=== PATIENT | male | born 1955 | race Caucasian/White ===

== ENCOUNTER 2024-01-29 13:25 | Outpatient (REF) | payer MEDICARE, SELFPAY ==
[2024-01-29 13:46] LABS: MANUAL DIFF FLAG NO
[2024-01-29 14:10] LABS: Basophils Percent Auto 0.6 % (0-2); Eosinophils Absolute Auto 0.1 X10*3/uL (0.0-0.4); Eosinophils Percent Auto 2.2 % (0-4); Hematocrit 47.1 % (42.0-52.0); Hemoglobin 16.4 g/dl (14.0-18.0); Imm Gran Abs Auto 0.02 X10*3/uL (0.00-0.03); Imm Gran Pct Auto 0.3 % (0.0-0.4); Lymphocytes Absolute Auto 1.8 X10*3/uL (1.2-4.9); Lymphocytes Percent Auto 28.6 % (20-40); Mean Corpuscular HGB Conc 34.8 g/dl (31.0-36.0); Mean Corpuscular Hemoglobin 34.4 pg (27.0-33.0); Mean Corpuscular Volume 98.7 fL (80.0-98.0); Mean Platelet Volume 11.6 fL (9.4-12.4); Monocytes Absolute Auto 0.7 X10*3/uL (0.1-1.2); Neutrophils Absolute Auto 3.6 x10*3/uL (2.0-8.3); Neutrophils Percent Auto 57.3 % (45-73); Platelet Count 176 X10*3/uL (160-400); Red Blood Count 4.77 X10*6/uL (4.60-5.80); Red Cell Distribution Width 12.1 % (11.0-16.0); White Blood Count 6.3 X10*3/uL (4.8-10.8)
[2024-01-29 14:25] LABS: Appearance Urine Clear; Color Urine Yellow; Glucose Urine UA Negative (Negative); Leukocyte Esterase Urine Trace (Negative); Nitrite Urine Negative (Negative); UMIC TRIGGER UA YES; Urine Blood Negative (Negative); Urine Ketones Negative (Negative); Urine Protein Negative (Neg-Trace)
[2024-01-29 14:29] LABS: Alanine Aminotransferase 41 U/L (0-40); Albumin Level 4.3 g/dL (3.5-5.0); Alkaline Phosphatase 69 U/L (39-117); Anion Gap 12 (12-20); Aspartate Amino Transferase 33 U/L (5-37); Bilirubin Total 0.9 mg/dL (0.0-1.0); Blood Urea Nitrogen 8 mg/dL (9-16); Calcium 9.6 mg/dL (8.4-10.2); Carbon Dioxide 30 mmol/L (22-29); Chloride 101 mmol/L (96-108); Cholesterol 191 mg/dL (<200); Estimated Glomerular Filt Rate > 60; Glucose Random 109 mg/dL (60-115); Potassium 5.2 mmol/L (3.3-5.1); Sodium 138 mmol/L (135-145); Total Protein 7.6 g/dL (6.5-8.0)
[2024-01-29 14:31] LABS: Bacteria Urine Trace (None Seen); Hyaline Casts Urine 0-2 /LPF (0-2); RBC Urine 0-2 /HPF (0-2); Squamous Epithelial Cell Urine 0-2 /HPF (0-2); WBC Urine 0-5 /HPF (0-5)
[2024-01-29 14:45] LABS: Prostate Specific Antigen Scr 1.82 ng/mL (<0.05-4.0)
== END 2024-01-29 13:26 | disposition home or self-care (01) ==
LOC: HO.LAB 13:25
PROVIDERS: PCP Internal Medicine; Visit Provider Internal Medicine
DX: R63.5 Abnormal weight gain (principal); Z12.5 Encounter for screening for malignant neoplasm of prostate
CPT/HCPCS: 36415; 80053; 81001; 82465; 84153; 85025

== ENCOUNTER 2024-03-03 08:15 | Outpatient (AMB) | payer MEDICARE, SELFPAY ==
--- NOTE | 2024-03-03 08:36 | MHC.OFFVIS ---
Vital Signs 03/03/24 08:40 Height 5 ft 8 in Weight 156 lb BMI 23.7 Handedness Right Intake Visit Reasons: N/P Dupuytrens's 4th Finger right Intake Note: Shon 68 yr old right hand dominant male presents today for a new problem visit for his right hand Dupuytrens contracture. States his 4th Finger is karel inward towards his palm and is very discomforting. Patient reports having this for many years. No previous treatment. He states that his 4th finger contracts all the time and he hasn't tried anything to relieve his pain. Allergies No Known Allergies Allergy (Verified 03/03/24 08:39) HPI HPI N/P Dupuytrens's 4th Finger right : Details: Shon is a 68 year old right hand dominant man who presents with complaints of a right ring finger contracture. He complains of his ring finger karel inwards for some time. He says this has been present for several years, is causing him pain, and is affecting his ADLs. He says he plays Basketball but is unable to dribble the ball with his right hand due to this. He denies any prior treatment. He denies any numbness or tingling. He has a fungal nail infection to multiple fingernails. He says he spoke with his PCP concerning this but denies any treatment being done. 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 [facility] Social History (Updated 03/03/24 @ 08:40 by Julianna Saldivar) Alcohol intake: never Patient Tobacco Use Status: Never used Tobacco Current occupational status: retired Current occupation: right hand dominant Review of Systems Const All systems reviewed & are unremarkable except as noted in HPI and below Physical Exam Vital Signs: BMI result Body Mass Index 23.7 Const General: cooperative, healthy appearing and no acute distress Orientation/consciousness: patient oriented x3 HEENT Head: Yes normocephalic and Yes atraumatic Eyes EOM: EOMs intact bilaterally Resp Effort & Inspection: normal respiratory effort and able to speak in complete sentences Cardio Jugular venous distension: no JVD Skin General skin exam: turgor normal Rashes: no rashes Neuro General: patient oriented x3 Extrem Other: Evaluation of Right Upper Extremity: The patient is alert, oriented, and in no acute distress Neuro: Median, Ulnar, Radial nerves motor and sensory intact and sensation is normal to the tips of all digits Vascular: Cap refill brisk ROM: He can bring his fingers closed to a fist He can extend his thumb, index, middle, and small fingers He cannot place his hand fully flat on the table His ring finger has a Dupuytrens contracture MCP 50/PIP 0 There is a large central Dupuytrens cord extending from the mid-palm to the radial side of the ring finger PIP joint Skin: No lacerations or abrasions. General: No Ecchymosis. No Erythema or evidence of infection. He has onychomycosis to multiple fingernails bilaterally Psych Appearance: grossly normal Affect: normal affect Attitude: cooperative Assessment & Plan Assessment & Plan (1) Dupuytren's contracture of right hand: Code(s): M72.0 - Palmar fascial fibromatosis [Dupuytren] Category: Medical (2) Onychomycosis: Code(s): B35.1 - Tinea unguium Category: Medical Plan Assessment & Plan: 1. Right ring finger Dupuytrens contracture MCP 45-50/PIP 0 I educated him about this condition I discussed operative treatment options The patient would like to proceed with surgery I directed him to the [email or web address] website for more information The risks and benefits of operative treatment were discussed with the patient and the patient wishes to proceed with surgery. These risks include, but are not limited to risk of damage to blood vessels, nerves, tendons, infection, recurrence, incomplete relief of preoperative symptoms, persistent pain, possible need for further surgery and the risks associated with regional blocks and anesthesia. The plan is to take the patient to the operating room sometime in the next few weeks for the following procedures: 1. Right ring finger partial fasciectomy, under general All of the preoperative paperwork including the consent was reviewed today. All the patient's questions were answered. The patient understands that they will be contacted by our visitor information assistant soon to schedule this procedure He denies Diabetes, blood thinners, asthma, heart, lung, kidney issues 2. Onychomycosis Affecting multiple nails I educated him about this condition I recommend he speak with his PCP concerning non-operative treatment options Scribed for Lo Garcia MD by Kyle Ibrahim electromedical service engineer, on 03/03/24 at 8:50 AM, EST. Coding Level of Care Code New Pt Level 4 (28394) Diagnoses Dupuytren's contracture of right hand M72.0 Onychomycosis B35.1
[2024-03-03 08:40] VITALS: BMI 23.7
== END 2024-03-03 09:09 | disposition home or self-care (01) ==
PROVIDERS: PCP Internal Medicine; Visit Provider Orthopaedic Surgery
DX: M72.0 Palmar fascial fibromatosis [Dupuytren] (principal); B35.1 Tinea unguium
CPT/HCPCS: 99204

== ENCOUNTER → 2024-03-03 08:15 | Outpatient (BNVA) | payer MEDICARE, SELFPAY | PROVIDERS: PCP Internal Medicine; Visit Provider Orthopaedic Surgery | DX: M72.0 Palmar fascial fibromatosis [Dupuytren] (principal); B35.1 Tinea unguium | CPT/HCPCS: 99202 ==

== ENCOUNTER 2024-04-08 06:01 | Day surgery (SDC) | payer MEDICARE, SELFPAY ==
[2024-03-30 09:56] VITALS: BMI 23.7
--- NOTE | 2024-04-06 15:02 | HO.ANESPROP2 ---
Documented by User: Luciana Maxwell NP 04/06/24 15:04 HPI - Anesthesia Eval Consult details Narrative: 68yo M for Right Ring finger Dupuytrens Contracture Release partial Fasciotomy PMFSH Active Problems Active Problems: All Active Problems (Updated 03/30/24 @ 09:56 by Alyssa Roberts RN) Onychomycosis (Acute) Dupuytren's contracture of right hand (Acute) Past Medical History Medical History No pertinent past medical history Surgical History Surgical History History of open reduction and internal fixation (ORIF) procedure H/O colonoscopy Social History Social History Are you a primary adult care provider to a significant other at home: No Do you presently have visiting nurse or other home services: No Alcohol intake: never Patient Tobacco Use Status: Never used Tobacco Use of substances other than those prescribed or required for medical reasons: No Have you been hit, kicked, punched, or otherwise hurt by someone within the past year? If so, by whom?: No Are you DNR?: No Advance Directives: No Advance Directives Information Provided: Yes Advance Directives on File: No Recently lost weight without trying: No Eating poorly because of decreased appetite: No Nutrition Risks: No Nutritional Risk Poor oral hygiene: No (has post upper front tooth for upcoming implant) Current occupational status: retired Current occupation: right hand dominant Meds Allergies Allergy/AdvReac Type Severity Reaction Status Date / Time No Known Allergies Allergy Verified 04/08/24 06:10 Exam Height,Weight and Vital Signs: Height 5 ft 8 in Weight 70.76 kg Pertinent Lab Results Pertinent Lab Results: Laboratory Tests 01/29/24 13:45 WBC 6.3 Hgb 16.4 Hct 47.1 Plt Count 176 Sodium 138 Potassium 5.2 H Chloride 101 Carbon Dioxide 30 H BUN 8 L Creatinine 0.88 Assessment and Plan Assessment Anesthesia Assessment: Chart Reviewed Documented by User: Sheridan Cortes MD 04/08/24 08:22 PMFSH Past Medical History Medical History No pertinent past medical history Family History Family history of problems with anesthesia: No Surgical History Surgical History History of open reduction and internal fixation (ORIF) procedure H/O colonoscopy History of Problems with Anesthesia: No Social History Social History Are you a primary adult care provider to a significant other at home: No Do you presently have visiting nurse or other home services: No Alcohol intake: never Patient Tobacco Use Status: Never used Tobacco Use of substances other than those prescribed or required for medical reasons: No Have you been hit, kicked, punched, or otherwise hurt by someone within the past year? If so, by whom?: No Are you DNR?: No Advance Directives: No Advance Directives Information Provided: Yes Advance Directives on File: No Recently lost weight without trying: No Eating poorly because of decreased appetite: No Nutrition Risks: No Nutritional Risk Poor oral hygiene: No (has post upper front tooth for upcoming implant) Current occupational status: retired Current occupation: right hand dominant Meds Allergies Allergy/AdvReac Type Severity Reaction Status Date / Time No Known Allergies Allergy Verified 04/08/24 06:10 Exam Airway Mallampati Class: III TM Dist: <=3cm Neck ROM: Poor (missing front upper tooth) Heart: rrr Lungs: cta Assessment and Plan Assessment Anesthesia Assessment: Anesthesia Plan Discussed Final Anesthetic Review Family History of Problems with Anesthesia: No History of Problems with Anesthesia: No NPO: Yes ASA Class: II Final Preanesthetic Review: No Changes in Pt Med Stat, Meds/Allgs Chart Reviewed, Consent Obtained/Reviewed and Anes Risks/Benef Reviewed Patient Risk: Intermediate Procedure Risk: Intermediate Anesthetic Plan Anesthetic Plan: GA and Regional Block Disposition: Standard PACU
[2024-04-08 06:13] VITALS: BP 133/83; PULSE 66; RESP 18; TEMP 36.1; O2SAT 96; BMI 25.2
[2024-04-08] MEDS: Lactated Ringers 1,000 ML 100 ML IVCONT (06:48)
--- NOTE | 2024-04-08 07:35 | MHC.SHP ---
Pre-Procedural Eval Section A - 24 Hr Update-Section A only Date of Service: 04/08/24 The patient is an INPATIENT: No Changes since office visit: No Cold of Flu in the past 2 weeks, No New Medical Problems, No Changes in Medication and No Patient answered all questions The patient has been examined within 24 hours of the surgical procedure. The History & Physical has been completed within 30 days and I have reviewed it.: Yes Section B - Complete if H&P > 30 days Chief Complaint: Palmar fascial fibromatosis [Dupuytren] Allergies: Allergies Allergy/AdvReac Type Severity Reaction Status Date / Time No Known Allergies Allergy Verified 04/08/24 06:10 Exam Exam Comment: Ring finger Dupuytren's contracture Plan Diagnosis/Plan: Unchanged I have reviewed the history and physical and performed a pertinent physical examination on my patient. No changes have occurred unless specified. Time Spent With Patient Time: Total time managing care of this patient today ____ minutes.
--- NOTE | 2024-04-08 07:36 | P.OP_ITS ---
Operative Note Operative Note Date of Service: 04/08/24 Narrative: Preop diagnosis: 1. Right ring finger Dupuytren's contracture Postop diagnosis: Same Procedure: 1. Right ring finger Partial Dupuytren's fasciectomy Surgeon: Lo Garcia MD Anesthesia: General anesthesia plus regional block Findings: Dupuytren's cord, contracture corrected to 0 degree MCP/0 degree PIP Implants: None Tourniquet time: 46 minutes EBL: 5.0 ml Specimen: Dupuytren's cord to histopathology Drains: None Complications: None Disposition: Brought to the recovery room in stable condition Plan: Follow-up in 10-14 days for wound check, suture removal and to check pathology OT appt on day of f/u to make a custom night spint and to begin OT Indications: The patient is 68 years old with right ring finger Dupuytren's contracture . The risks and benefits of operative treatment, including but not limited to risk of damage to blood vessels, nerves, tendons, infection, recurrence, persistent pain or numbness, incomplete resolution of preoperative symptoms, or need for further surgery were discussed with the patient and they wished to proceed with surgery. Procedure: Once consent was obtained patient was brought back to the operating suite and placed in the operating table in a supine position. A regional block was performed by the anesthesia team. Perioperative antibiotics and anesthesia was administered by the anesthesia team. A tourniquet was applied to the proximal aspect of the right upper extremity and the limb was prepped and draped in a standard surgical fashion. The limb was elevated exsanguinated with Esmarc h bandage and the tourniquet inflated to 250 mm of mercury for a total tourniquet time of 46 minutes. I made a Niraj type incision extending along the Dupuytren's cord from the mid palm to the PIP flexion crease of the right ring finger. The incision was made with a 15. Blade through the skin the subcutaneous tissues. I then carefully dissected down to the level of the Dupuytren's cord beginning at the proximal aspect of the incision. This was done using tenotomy and iris scissors. Care was taken to protect the nearby neurovascular structures. The Dupuytren's cord was cut at its proximal aspect using tenotomy scissors. It was then grasped with an Allis clamp. The Dupuytren's cord was then carefully dissected free in a proximal to distal direction using tenotomy scissors and a gain taking care to protect the nearby neurovascular structures. The cord extended distally to the volar skin just proximal to the PIP joint. The cord was then dissected free from the patient placed on the back table to be sent for histopathology. This then corrected his Dupuytren's contracture to 0 degree MCP/0 degree PIP At this point the tourniquet was deflated and hemostasis obtained with a brief period of local pressure The wound was copiously irrigated with normal saline. The skin edges were reapproximated with 4-0 and 5-0 Prolene suture. The wound was infiltrated with some 0.5% plain ropivacaine for postop pain control and a sterile dressing was applied. The patient appears to have tolerated the procedure well and with no complications. All digits were well vascularized conclusion of the case.
[2024-04-08 09:25] VITALS: BP 152/78; PULSE 68; RESP 17; TEMP 36.6; O2SAT 98
[2024-04-08 09:30] VITALS: BP 167/86; PULSE 62; RESP 16; O2SAT 96
[2024-04-08 09:35] VITALS: BP 160/86; PULSE 60; RESP 16; O2SAT 96
[2024-04-08 09:40] VITALS: BP 165/89; PULSE 57; RESP 16; O2SAT 96
[2024-04-08 09:55] VITALS: BP 137/77; PULSE 60; RESP 16; TEMP 36.6; O2SAT 96
== END 2024-04-08 10:49 | disposition home or self-care (01) ==
PROVIDERS: PCP Internal Medicine; Visit Provider Orthopaedic Surgery
PROC: (CPT 26045; principal; 2024-04-08 07:30)
DX: M72.0 Palmar fascial fibromatosis [Dupuytren] (principal)
CPT/HCPCS: 26123; 88304; J0131; J0330; J0665; J0690; J1100; J2250; J2405; J2704; J2795; J3010

== ENCOUNTER → 2024-04-08 06:01 | Outpatient (BNV) | payer MEDICARE, SELFPAY | PROVIDERS: PCP Internal Medicine; Visit Provider Orthopaedic Surgery | DX: M72.0 Palmar fascial fibromatosis [Dupuytren] (principal) | CPT/HCPCS: 26123 ==

== ENCOUNTER 2024-04-20 09:15 | Outpatient (AMB) | payer MEDICARE, SELFPAY ==
[2024-04-20 09:20] VITALS: BMI 22.8
--- NOTE | 2024-04-20 09:20 | MHC.OFFVIS ---
Vital Signs 04/20/24 09:20 Height 5 ft 8 in Weight 150 lb BMI 22.8 Handedness Right Intake Visit Reasons: PO-Rt RF Dupuytrens 04/08/24 Intake Note: Shon is a 68 year old male who presents today post operatively s/p Right RF Dupuytrens 04/08/24. Patient reports that his hand feels a bit better after surgery. He expresses not having pain at this time. Denies numbness and tingling. Allergies No Known Allergies Allergy (Verified 04/20/24 09:28) HPI HPI PO-Rt RF Dupuytrens 04/08/24: Details: Patient is a 68 old male who presents for his 1st postop appointment after right ring finger Dupuytren's partial fasciectomy. Patient reports that he is doing well, and then he currently has no pain at the surgical site. Denies any numbness or tingling in his right hand. Patient reports that he is able to fully extend all fingers, but reports mild stiffness when he tries to make a fist. Per Dr. Garcia, patient was not placed in a splint at time of surgery. Patient inquires as to whether he can mow his lawn, as well as go fishing. [facility] Medical History No pertinent past medical history Surgical History History of open reduction and internal fixation (ORIF) procedure H/O colonoscopy Social History Are you a primary healthcare facility administrator to a significant other at home: No Do you presently have visiting nurse or other home services: No Alcohol intake: never Patient Tobacco Use Status: Never used Tobacco Current occupational status: retired Current occupation: right hand dominant Review of Systems Const All systems reviewed & are unremarkable except as noted in HPI and below Physical Exam Vital Signs: BMI result Body Mass Index 22.8 Const Other: Patient is alert, oriented, cooperative, and in no acute distress HEENT Head: Yes normocephalic and Yes atraumatic Resp Effort & Inspection: normal respiratory effort and able to speak in complete sentences Cardio Jugular venous distension: no JVD Neuro General: gait normal Cognition (Neuro): normal cognition Extrem Other: Incision site over right ring finger and palm is healing well, with no edema, erythema, or discharge. No evidence of infection. Sutures intact. Patient reports no tenderness to palpation around the surgical site. Patient is able to fully extend all digits of the right hand. He could actively bring his fingers close towards a fist but still has some swelling and is unable to completely bring it close. We went over some range of motion exercises in clinic that he is going to work on. Sensation intact in both the radial and ulnar aspects of the right ring finger. Sensation intact to all other digits. Capillary refill brisk. Psych Appearance: grossly normal Mental Status: mental status grossly normal Assessment & Plan Assessment & Plan (1) Dupuytren's contracture of right hand: Code(s): M72.0 - Palmar fascial fibromatosis [Dupuytren] Category: Medical Plan 1. Dupuytrens of right ring finger, s/p partial fasciectomy DOS 04/08/24 Preop contracture: 45-50 MCP/ 0 PIP Post op contracture: 0/0 Patient doing well post-operatively Patient educated on post-operative course Patient will have sutures removed today with steri strip placement. 2 pound weight limit on R hand for 2 more weeks Referral to occupational therapy placed today, for gentle ROM working towards making a closed fist and placing hand flat on the table. Patient also advised to avoid mowing the lawn and fishing for at least another 2 weeks, due to risk of shearing the wound and potentially reopening the incision site. Patient will follow-up in 3-4 weeks for [id number] check, or sooner with any acute concerns. Orders: Orders OT Evaluation and Treatment 04/20/24 M72.0 - Palmar fascial fibromatosis [Dupuytren] Coding Level of Care Code Global (66389) Diagnoses Dupuytren's contracture of right hand M72.0
== END 2024-04-20 10:09 | disposition home or self-care (01) ==
PROVIDERS: PCP Internal Medicine
DX: M72.0 Palmar fascial fibromatosis [Dupuytren] (principal)
CPT/HCPCS: 99024

== ENCOUNTER → 2024-04-20 09:15 | Outpatient (BNVA) | payer MEDICARE, SELFPAY | PROVIDERS: PCP Internal Medicine | DX: M72.0 Palmar fascial fibromatosis [Dupuytren] (principal) | CPT/HCPCS: 99212 ==

== ENCOUNTER 2024-05-12 08:51 | Outpatient (AMB) | payer MEDICARE, SELFPAY ==
--- NOTE | 2024-05-12 08:55 | A.OFFVIS_ITS ---
Vital Signs 05/12/24 08:57 Height 5 ft 8 in Weight 156 lb BMI 23.7 Handedness Right Intake Visit Reasons: PO- 3 wk f/u Rt RF Dupuytrens 04/08/24 Intake Note: Shon is a 68 year old right hand dominant male who presents today post operatively S/P Right ring finger Partial Dupuytren's fasciectomy 04/08/14 w/ AR. Patient reports he still has some discomfort when making a closed clenched fist but otherwise no pain. He missed his first OT appointment but has one scheduled for tomorrow, 05/12/24, in the afternoon. He would like to discuss when he can start bike riding. Allergies No Known Allergies Allergy (Verified 05/12/24 09:00) HPI HPI PO- 3 wk f/u Rt RF Dupuytrens 04/08/24: Details: Shon is a 68 year old right hand dominant man who returns S/P right ring finger partial fasciectomy, DOS: 04/08/24. He is doing well and is happy with the results of his surgery. He has been working on ROM exercises at home. He says he missed his first OT appointment but has one scheduled for tomorrow. He has some discomfort by his incision when making a closed fist but he says this is tolerable. He would like to know when he can return to bike riding. [facility] Medical History No pertinent past medical history Surgical History History of open reduction and internal fixation (ORIF) procedure H/O colonoscopy Social History Are you a primary home child care provider to a significant other at home: No Do you presently have visiting nurse or other home services: No Alcohol intake: never Patient Tobacco Use Status: Never used Tobacco Current occupational status: retired Current occupation: right hand dominant Physical Exam Vital Signs: BMI result Body Mass Index 23.7 Extrem Other: Evaluation of Right Upper Extremity: The patient is alert, oriented, and in no acute distress Neuro: Median, Ulnar, Radial nerves motor and sensory intact and sensation is normal to the tips of all digits Vascular: Cap refill brisk ROM: He can bring his fingers closed to a fist and back into full extension Incision site well healed, no open areas noted, no sensitivity to palpation He has onychomycosis to multiple fingernails bilaterally Assessment & Plan Assessment & Plan (1) Dupuytren's contracture of right hand: Code(s): M72.0 - Palmar fascial fibromatosis [Dupuytren] Category: Medical (2) Onychomycosis: Code(s): B35.1 - Tinea unguium Category: Medical Plan Assessment & Plan: 1. Right ring finger Dupuytrens contracture MCP 45-50/PIP 0 Now MCP 0/PIP 0 The patient appears to be doing well post-operatively I educated him about the post-operative course I discussed activity modifications, he is able to use his hand for normal daily activities at this time. Patient inquires particularly about riding his bicycle, and is told that he can restart riding his bike as tolerated He will continue to work on ROM exercises at home He will attend OT hand therapy as instructed He can follow up prn 2. Onychomycosis Affecting multiple nails I educated him about this condition I recommend he speak with his PCP concerning non-operative treatment options Scribed for RAND Wade by Kyle Ibrahim, lpn or medical assistant, on 05/12/24 at 9:05 AM, EST. Coding Level of Care Code Global (98722) Diagnoses Dupuytren's contracture of right hand M72.0 Onychomycosis B35.1
[2024-05-12 08:57] VITALS: BMI 23.7
== END 2024-05-12 10:06 | disposition home or self-care (01) ==
PROVIDERS: PCP Internal Medicine
DX: M72.0 Palmar fascial fibromatosis [Dupuytren] (principal); B35.1 Tinea unguium
CPT/HCPCS: 99024

== ENCOUNTER → 2024-05-12 08:51 | Outpatient (BNVA) | payer MEDICARE, SELFPAY | PROVIDERS: PCP Internal Medicine | DX: B35.1 Tinea unguium (principal); Z47.89 Encounter for other orthopedic aftercare; Z87.39 Personal history of other diseases of the musculoskeletal system and connective tissue | CPT/HCPCS: 99212 ==

== ENCOUNTER 2024-05-13 11:13 | Outpatient (RCR) | payer MEDICARE, SELFPAY ==
--- NOTE | 2024-05-14 12:47 | MHC.OT.EP ---
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 He is here post surgical 04/08/24. He denies any pain and reports he does not believe he needs to come to therapy and would like an HEP to gain AROM as well as scar management techniques, in order to increase the functional use of his dominant hand . OT is in agreement but pt should follow up as/if necessary Frequency and Duration: The patient will be seen Pt will perform scar care & HEP at home per pt's request. Short Term Goals: Retirement Goals: Pt will be complaint w/ scar managemnt techniques Pt will RPLOF Pt will report riding his bike w/out difficulty Treatment Plan: Therapeutic Exercise Therapeutic Activity Home Exercise Program Splinting Neuro Re-ed Patient Education Desensitization/Sensory Re-ed Edema Control ADL Training Ultrasound NMES Iontophoresis Paraffin Fluidotherapy MHP Cold Packs Joint Mobilization Soft Tissue Mobilization Kinesiotaping Other (see comments) D/charge pt; pt was educated on scar care and his HEP today; and will follow up w/OT as needed. Pt did not wish to attend OT therapy at this time Electronically Signed By: Marilu Machado OTR/L Please Sign and return to therapist. Thank you once again for your referral.
== END 2024-05-14 12:49 | disposition home or self-care (01) ==
LOC: HO.OT 11:13
PROVIDERS: PCP Internal Medicine
DX: M72.0 Palmar fascial fibromatosis [Dupuytren] (principal)
CPT/HCPCS: 29130; 97165; 97535

== ENCOUNTER 2025-04-14 13:56 | Outpatient (AMB) | payer MEDICARE, SELFPAY ==
[2025-04-14 14:34] VITALS: BP 122/80; PULSE 80; TEMP 36.6; O2SAT 96; BMI 23.9
--- NOTE | 2025-04-14 14:34 | MHC.PC.OV ---
Vital Signs 04/14/25 14:34 Height 5 ft 8 in Weight 157 lb BMI 23.9 BP 122/80 Blood Pressure Location Lt brachial Position Sitting Pulse 80 Pulse Source Pulse Oximeter Temp 97.8 F Temp Source Axillary Pulse Oximetry (%) 96 Oxygen Delivery Method Room Air Intake Visit Reasons: Annual Avionics Installer Required: No Accompanied by: Self / Same As Patient Allergies No Known Allergies Allergy (Verified 04/14/25 14:37) Tobacco use date assessed: 04/14/25 Fall risk assessment: No Falls in past year Last assessed Fall Risk: 04/14/25 Dental Screening Dental Screen Date: 04/14/25 Did you have a dental visit in the last 12 months?: Yes Did you have a dental problem in the last 6 months where you did not have access to dental care?: No HPI HPI Comments History of Present Illness Details 69 year old male with a past medical history of duputryens contracture presenting for annual exam Finger nail fungus. Has failed topical therapy Unclear on last colonoscopy. Does not think it has been 10 years. Took a tick off yesterday. Does not know how long imbedded but guesses 3-4 days as thinks likely got in [place] Follows with orthopedics for duputryens ROS CONSTITUTIONAL: Denies weight loss, fever and chills. HEENT: Denies changes in vision and hearing. RESPIRATORY: Denies SOB and cough. CV: Denies palpitations and CP GI: Denies abdominal pain, nausea, vomiting and diarrhea. : Denies dysuria and urinary frequency. MSK: Denies new myalgia and joint pain. SKIN: Denies rash and pruritus. NEUROLOGICAL: Denies headache PSYCHIATRIC: Denies recent changes in mood. PHYSICAL EXAM: GENERAL: Alert and oriented x 3. NAD EYES: EOMI. Anicteric. HENT: Moist mucous membranes. No scleral icterus. No cervical lymphadenopathy. LUNGS: Clear to auscultation bilaterally. CARDIOVASCULAR: Regular rate and rhythm. No murmur. No JVD. ABDOMEN: Soft, non-tender +bs EXTREMITIES: No edema. Non-tender. SKIN: No rashes or lesions. Warm. NEUROLOGIC: No focal neurological deficits. CN II-XII grossly intact PSYCHIATRIC: Cooperative. Appropriate mood and affect [facility] Medical History No pertinent past medical history Surgical History History of open reduction and internal fixation (ORIF) procedure H/O colonoscopy Family History Mother No problems noted. Father No problems noted. Social History Housing: House Are you a primary continuum of care manager to a significant other at home: No Do you presently have visiting nurse or other home services: No Alcohol intake: never Patient Tobacco Use Status: Never used Tobacco e-Cigarette/Vaping Use: Never Used service: No Current occupational status: retired Current occupation: right hand dominant Cognitive needs: No Hearing needs: No Vision needs: Yes (rx glasses) Questionnaire PHQ-9 Over the last 2 weeks, how often have you been bothered by any of the following problems? 1. Little interest or pleasure in doing things: not at all 2. Feeling down, depressed, or hopeless: not at all 3. Trouble falling or staying asleep, or sleeping too much: not at all 4. Feeling tired or having little energy: not at all 5. Poor appetite or overeating: not at all 6. Feeling bad about yourself - or that you are a failure or have let yourself or your family down: not at all 7. Trouble concentrating on things, such as reading the newspaper or watching television: not at all 8. Moving or speaking so slowly that other people could have noticed. Or the opposite - being so fidgety or restless that you have been moving around a lot more than usual: not at all 9. Thoughts that you would be better off or of hurting yourself in some way: not at all Total score: 0 Depression Screening Interpretation: Negative Depression Screening Done: Yes 18362 - PHQ-9 Billing: Yes Source: Developed by Drs. Israel Jones, Shahla Stubbs, Glen Arnett and colleagues, with an educational chirag from [employer]. Thrive Questionnaire Date Thrive assessed: 04/14/25 I am a: Patient Within the past 12 months, did the food you bought not last and you didn't have the money to get more?: Never true Within the past 12 months, did you worry whether your food would run out before you got money to buy more?: Never true Do you have trouble paying for medicines?: No Do you have trouble getting transportation to medical appointments?: No Do you have trouble paying your heating and electricity bill?: No Do you have trouble taking care of your child, family member or friend?: No Do you have trouble with day-to-day activities such as bathing, preparing meals, shopping, managing finances, etc.?: No Are you currently unemployed and looking for a job?: No Are you interested in more education?: No THRIVE Score: 0 AUDIT C Alcohol Use Questionnaire (AUDIT-C) 1. How often do you have a drink containing alcohol?: Monthly or less 2. How many drinks containing alcohol do you have on a typical day when you are drinking?: 1 or 2 3. How often do you have six or more drinks on one occasion?: Less than monthly Total Score: 2 DWAINE-7 AMB Questionnaire DWAINE-7 Date DWAINE - 7 assessed: 04/14/25 Feeling nervous, anxious, or on edge: 0 = Not at all Not being able to stop or control worryin = Not at all Worrying too much about different things: 0 = Not at all Trouble relaxin = Not at all Being so restless that it is hard to sit still: 0 = Not at all Becoming easily annoyed or irritable: 0 = Not at all Feeling afraid as if something awful might happen: 0 = Not at all Total DWAINE-7 score (0-4 normal; 5-9 mild; 10-14 moderate; 15-21 severe): 0 Source: Developed by Drs. Israel Jones, Shahla Stubbs, Glen Arnett and colleagues, with an educational chirag from [employer]. Physical exam (Primary Care) Vital Signs: Last Vital Signs Temp 97.8 F 04/14/25 14:34 Pulse 80 04/14/25 14:34 BP 122/80 04/14/25 14:34 Pulse Ox 96 04/14/25 14:34 Oxygen Delivery Method Room Air 04/14/25 14:34 BMI result Body Mass Index 23.9 Tobacco/Smoking Status: Tobacco use Status Tobacco use date assessed 04/14/25 04/14/25 14:38 Patient Tobacco Use Status Never used Tobacco 04/14/25 14:38 e-Cigarette/Vaping Use Never Used 04/14/25 14:38 PHQ-9: PHQ-9 Score PHQ-9: Total score 0 04/14/25 14:44 Depression Screening Interpretation: Negative Thrive Assessment: Date of Thrive Assessment Date Thrive assessed 04/14/25 04/14/25 14:38 Coding Level of Care Code New Pt Prev Care >65yr (04858) Diagnoses Physical exam Z00.00 Dupuytren's contracture of right hand M72.0 Onychomycosis B35.1 Additional Codes PHQ-9 - 42465 - PHQ-9 Billing: Yes ([id number]) Assessment & Plan Assessment & Plan (1) Physical exam: Code(s): Z00.00 - Encounter for general adult medical examination without abnormal findings (2) Dupuytren's contracture of right hand: Code(s): M72.0 - Palmar fascial fibromatosis [Dupuytren] Category: Medical (3) Onychomycosis: Code(s): B35.1 - Tinea unguium Category: Medical Plan Establish care, CPE Social, family, surgical history reviewed Preventive measures for age discussed Tick [id number] ordered fingernail fungus-lamisil oral ordered. baseline LFTs Orders: Orders Complete Blood Count Auto Diff 04/14/25 B35.1 - Tinea unguium, R71.8 - Other abnormality of red blood cells, Z12.5 - Encounter for screening for malignant neoplasm of prostate, Z13.0 - Encounter for screening for diseases of the blood and blood-forming organs and certain disorders involving the immune mechanism, Z13.228 - Encounter for screening for other metabolic disorders Comprehensive Met. Panel 04/14/25 B35.1 - Tinea unguium, R71.8 - Other abnormality of red blood cells, Z12.5 - Encounter for screening for malignant neoplasm of prostate, Z13.0 - Encounter for screening for diseases of the blood and blood-forming organs and certain disorders involving the immune mechanism, Z13.228 - Encounter for screening for other metabolic disorders Prostate Specific Antigen 04/14/25 B35.1 - Tinea unguium, R71.8 - Other abnormality of red blood cells, Z12.5 - Encounter for screening for malignant neoplasm of prostate, Z13.0 - Encounter for screening for diseases of the blood and blood-forming organs and certain disorders involving the immune mechanism, Z13.228 - Encounter for screening for other metabolic disorders Lyme IgG/IgM w/reflex to WB 04/14/25 W57.XXXA - Bitten or stung by nonvenomous insect and other nonvenomous arthropods, initial encounter Lipid Panel 04/14/25 B35.1 - Tinea unguium, R71.8 - Other abnormality of red blood cells, Z12.5 - Encounter for screening for malignant neoplasm of prostate, Z13.0 - Encounter for screening for diseases of the blood and blood-forming organs and certain disorders involving the immune mechanism, Z13.228 - Encounter for screening for other metabolic disorders Hemoglobin A1c 04/14/25 B35.1 - Tinea unguium, R71.8 - Other abnormality of red blood cells, Z12.5 - Encounter for screening for malignant neoplasm of prostate, Z13.0 - Encounter for screening for diseases of the blood and blood-forming organs and certain disorders involving the immune mechanism, Z13.228 - Encounter for screening for other metabolic disorders Medications: New terbinafine HCl 250 mg PO DAILY 56 tabs 0RF doxycycline hyclate 200 mg (2 x 100 mg) PO ONCE 2 tabs 0RF
--- OUTSIDE RECORDS SUMMARY | 2025-04-14 15:11 | XMS_ITS | Patient Health Record ---
Author Organization [facility] Address [address] [place] [address] Care Team Providers Care Pneumatic Tube Operator Name Role Phone Kenroy Chan MD Primary Care Provider Israel Light [phone] Reason For Referral No Information Encounters Encounter Location Date Provider Diagnosis [facility] [address] [place] [id number] 05/12/2024 Israel Villalba Plan Of Treatment No Information Insurance Providers Payer Name Payer Address Payer Phone Subscriber Number Group Number Insured Name Patient Relationship to Insured Coverage Start Date Coverage End Date [employer] Medicare Advantage Plan [address] [address] [place] [address] [id number] CANDACE REDDY Self - patient is the insured [employer] [facility] [address] [place] [address] [id number] CANDACE REDDY Self - patient is the insured
== END 2025-04-14 15:00 | disposition home or self-care (01) ==
LOC: HO.HMCHD 13:56
PROVIDERS: PCP Internal Medicine; Visit Provider Internal Medicine
DX: Z00.00 Encounter for general adult medical examination without abnormal findings (principal); M72.0 Palmar fascial fibromatosis [Dupuytren]; B35.1 Tinea unguium

== ENCOUNTER → 2025-04-14 13:56 | Outpatient (BNVA) | payer MEDICARE, SELFPAY | PROVIDERS: PCP Internal Medicine; Visit Provider Internal Medicine | DX: Z00.00 Encounter for general adult medical examination without abnormal findings (principal); M72.0 Palmar fascial fibromatosis [Dupuytren]; B35.1 Tinea unguium; Z13.30 Encounter for screening examination for mental health and behavioral disorders, unspecified; Z13.31 Encounter for screening for depression | CPT/HCPCS: 96127; 99387 ==